=== PATIENT | male | born 1950 | race Hispanic/Latino ===

== ENCOUNTER → 2017-07-04 | Day surgery (SDC) | payer MEDICARE ==
[~2017-07-04] MED LIST: BACITRACIN 50,000 UNIT VIAL ONE; BUPIVACAINE HCL 0.5% 10ML MPF VIAL INJ ONE; FENTANYL CITRATE/PF 100MCG/2 ML INJ ONE; LIDOCAINE 2% /EPINEPHRINE 20 ML SDV INJ ONE; LIDOCAINE HCL 2% LOCAL INJ 5 ML SDV VIAL INJ ONE; PROPOFOL IV EMULSION 10 MG/ML 20 ML VIAL ONE
[2017-07-04 18:52] LABS: BASOPHILS % 0.5 % (0.0-1.0); EOSINOPHILS # (AUTO) 0.1 (0.0-0.4); EOSINOPHILS % 1.2 % (0.0-6.0); HEMATOCRIT 35.6 % (38.2-49.6); HEMOGLOBIN 11.5 g/dL (14.0-18.0); INR 1.5; LYMPHOCYTES # (AUTO) 1.1 (1.0-3.2); LYMPHOCYTES % 17.9 % (18.0-39.1); MEAN CORPUSCULAR HEMOGLOBIN 33.7 pg (28-32); MEAN CORPUSCULAR HGB CONC 32.3 g/dL (31-35); MEAN CORPUSCULAR VOLUME 104.4 fL (81-99); MONOCYTES # (AUTO) 0.3 (0.2-0.8); MONOCYTES % 4.2 % (4.4-11.3); NEUTROPHILS # (AUTO) 4.5 (2.1-6.9); NEUTROPHILS % 74.7 % (38.7-80.0); PLATELET COUNT 281 x10e3/uL (140-360); PROTHROMBIN TIME 18.9 seconds (11.9-14.5); RED BLOOD COUNT 3.41 x10e6/uL (4.3-5.7); RED CELL DISTRIBUTION WIDTH 12.4 % (11.7-14.4)
[2017-07-04 18:53] LABS: PARTIAL THROMBOPLASTIN TIME 41.1 seconds (23.8-35.5)
[2017-07-04 18:58] LABS: ALANINE AMINOTRANSFERASE 33 IU/L (0-55); ALBUMIN 2.3 g/dL (3.5-5.0); ALBUMIN/GLOBULIN RATIO 0.4 (0.8-2.0); ALKALINE PHOSPHATASE 206 IU/L (40-150); ANION GAP 12.3 mmol/L (8-16); BLOOD UREA NITROGEN 7 mg/dL (7-26); BUN/CREATININE RATIO 9 (6-25); CALCIUM 8.6 mg/dL (8.4-10.2); CARBON DIOXIDE 28 mmol/L (22-29); CHLORIDE 101 mmol/L (98-107); CREATININE, SERUM 0.77 mg/dL (0.72-1.25); EST GLOMERULAR FILTRATION RATE > 60 ML/MIN (60-); GLUCOSE 104 mg/dL (74-118); POTASSIUM 4.3 mmol/L (3.5-5.1); SODIUM 137 mmol/L (136-145)
--- NOTE | 2017-07-05 01:16 | Operative Report ---
DATE OF PROCEDURE: July 04, 2017 PREOPERATIVE DIAGNOSIS: Right lower extremity fasciitis. POSTOPERATIVE DIAGNOSIS: Right lower extremity fasciitis. OPERATIVE PROCEDURE: Incisional drainage of right lower extremity fasciitis. ANESTHESIA: Monitored sedation. INDICATIONS: The patient is a 67-year-old male with history of right lower extremity cellulitis, which progressed to fasciitis on CT scan. The patient consented for drainage of collection on the right anterior compartment of the lower extremity under monitored sedation with all attendant risks discussed. DESCRIPTION: The patient brought to the OR and given anesthesia in the supine position with IV conscious sedation. Local anesthesia of 0.5% lidocaine with epinephrine is injected at the projected site of incisions to supplement the monitored sedation. The leg has been prepped with Betadine and draped in sterile fashion. The area of fluctuance on the anterior aspect of the right lower extremity overlying the anterior compartment is incised approximately 2 to 3 cm in length in a transverse direction, deepening through the skin and subcutaneous tissue down to the fascia. The fascial plane is then developed above it in both directions up and down the leg until all the collected fluid is removed and specimen obtained for culture and sensitivity. Additional stab wound, 1 superior and 1 inferiorly is made in a similar fashion to open the entire anterior compartment on the plane above the fascia. The wound is then irrigated and a Maicol drain is placed from the top to the lowermost incisions to keep the wound open. We further packed the wound separately with iodoform gauze. With the entire fascial plane above the anterior compartment opened, we then wrapped the leg in gauze and Kerlix roll. He is then awakened from anesthesia and transported to recovery room. ESTIMATED BLOOD LOSS: 5 mL. Job#: [id number]
--- NOTE | 2017-07-05 01:23 | History and Physical ---
CHIEF COMPLAINT: Right leg infection. HISTORY OF PRESENT ILLNESS: This patient is a 67-year-old male known to me from prior hospitalizations at [facility] for right lower extremity cellulitis. Patient was placed on antibiotics and he was transferred to [facility] for further treatment. However, the right lower extremity became more swollen and tender with blister formations. CT scan showed evidence of fluid collection above the fascial plane in the right anterior compartment of the lower leg. Patient, therefore, consented for incisional and drainage and debridement under anesthesia. PAST MEDICAL HISTORY: Significant for diabetes, obesity, history of GI bleed, and alcoholism. SURGICAL HISTORY: Unremarkable. SOCIAL HABITS: Patient is a heavy alcohol user. He does not smoke. ALLERGIES: ALLERGIC TO NO DRUGS. REVIEW OF SYSTEMS: No chest pain shortness of breath or cough. EXAM VITAL SIGNS: Stable. He is afebrile. GENERAL: He is awake, alert, in moderate discomfort. HEENT: Sclerae nonicteric. NECK: Supple. LUNGS: Clear. HEART: Regular rhythm. No murmurs. ABDOMEN: Soft, nontender. EXTREMITIES: Revealed edematous and erythematous right lower extremity, below the knee to the ankle with blister formations on the lateral aspect of the lower leg with tenderness to palpation on the anterior compartment area of the leg. White cell count is 6, hemoglobin 11, creatinine is 0.7. CT scan as mentioned done at [facility] revealing fluid collection along the fascial plane on the anterior component of the right lower extremity. ASSESSMENT: Right lower extremity soft tissue infection with fasciitis. PLAN: Incision and drainage of the right lower extremity soft tissue infection under anesthesia. Attendant risks discussed with patient in detail. Job#: [id number] [place]
== END | disposition home or self-care (01) ==
LOC: OR 16:35
PROVIDERS: ATTEND Surgery
DX: M72.8 Other fibroblastic disorders (principal); I10 Essential (primary) hypertension; E11.65 Type 2 diabetes mellitus with hyperglycemia; K70.10 Alcoholic hepatitis without ascites; I48.2 Chronic atrial fibrillation; F10.20 Alcohol dependence, uncomplicated; E66.9 Obesity, unspecified; I48.92 Unspecified atrial flutter; Z79.01 Long term (current) use of anticoagulants
CPT/HCPCS: 27600; 36415; 80053; 82948; 85025; 85610; 85730; 87071; 87075; 87205; 93005; J2001 ×2

== ENCOUNTER 2021-03-26 07:45 | Observation (INO) | payer OTHER ==
[2021-03-22 09:04] LABS: BASOPHILS # (AUTO) 0.1 (0.0-0.1); BASOPHILS % 0.8 % (0.0-1.0); EOSINOPHILS # (AUTO) 0.3 (0.0-0.4); EOSINOPHILS % 3.3 % (0.0-6.0); HEMATOCRIT 46.8 % (38.2-49.6); HEMOGLOBIN 15.6 g/dL (14.0-18.0); LYMPHOCYTES # (AUTO) 1.7 (1.0-3.2); LYMPHOCYTES % 20.9 % (18.0-39.1); MEAN CORPUSCULAR HEMOGLOBIN 30.5 pg (28-32); MEAN CORPUSCULAR HGB CONC 33.3 g/dL (31-35); MEAN CORPUSCULAR VOLUME 91.4 fL (81-99); MONOCYTES # (AUTO) 0.6 (0.2-0.8); MONOCYTES % 6.9 % (4.4-11.3); NEUTROPHILS # (AUTO) 5.4 (2.1-6.9); NEUTROPHILS % 67.8 % (38.7-80.0); PLATELET COUNT 179 x10e3/uL (140-360); RED BLOOD COUNT 5.12 x10e6/uL (4.3-5.7); RED CELL DISTRIBUTION WIDTH 12.3 % (11.7-14.4)
[2021-03-22 09:19] LABS: CALCIUM 9.3 mg/dL (8.4-10.2); CREATININE, SERUM 1.26 mg/dL (0.72-1.25)
[~2021-03-26] VITALS: Ht 177.8 cm; Wt 121.6 kg
[~2021-03-26 07:45] MED LIST changes: +ADVIL200 MG PO; +ASPIRIN81 MG PO; -BACITRACIN 50,000 UNIT VIAL ONE; -BUPIVACAINE HCL 0.5% 10ML MPF VIAL INJ ONE; -FENTANYL CITRATE/PF 100MCG/2 ML INJ ONE; +HYDROCHLOROTHIA25 MG PO; -LIDOCAINE 2% /EPINEPHRINE 20 ML SDV INJ ONE; -LIDOCAINE HCL 2% LOCAL INJ 5 ML SDV VIAL INJ ONE; -PROPOFOL IV EMULSION 10 MG/ML 20 ML VIAL ONE
[2021-03-26] MEDS ORDERED: ROPIVACAINE 246.25 MG, EPINEPHRINE HCL 1:1000 1ML 0.5 MG, CLONIDINE HCL 0.08 MG, KETORO... INJ ONE ×5 (08:00)
[2021-03-26] MEDS ORDERED: DEXAMETHASONE SOD PHOS 10 MG/1 ML VIAL ONE (08:40)
[2021-03-26] MEDS ORDERED: CELECOXIB 200 MG CAP ONE ×2 (08:40→17:46)
[2021-03-26] MEDS ORDERED: SODIUM CHLORIDE 0.9% 50ML 100 ML ONE (08:41)
[2021-03-26] MEDS ORDERED: GABAPENTIN 300 MG CAP ONE (08:41)
[2021-03-26] MEDS ORDERED: SODIUM CHLORIDE 0.9% 500ML 500 ML ONE (09:45)
[2021-03-26] MEDS ORDERED: Vancomycin IV 1,000 MG ONE (09:45)
[2021-03-26] MEDS ORDERED: TRANEXAMIC ACID 1,000 MG/10 ML ML ONE (09:46)
[2021-03-26] MEDS ORDERED: HYDROCODONE/APAP 5MG-325MG TAB PO PRN (11:45)
[2021-03-26] MEDS ORDERED: DIPHENHYDRAMINE HCL INJ 50 MG/ML VIAL IV PRN (11:45)
[2021-03-26] MEDS ORDERED: HYDROCODONE/APAP 7.5MG-325MG 1 EA TAB PO PRN (11:45)
[2021-03-26] MEDS ORDERED: KETOROLAC TROMETHAMINE 30 MG/ML VIAL IV PRN (11:45)
[2021-03-26] MEDS ORDERED: SODIUM CHLORIDE 0.9% 1000ML 1,000 ML IV SCH (11:45)
[2021-03-26] MEDS ORDERED: ACETAMINOPHEN 650 MG SUPP PR PRN (11:45)
[2021-03-26] MEDS ORDERED: ZOLPIDEM TARTRATE 5 MG TAB PO PRN (11:45)
[2021-03-26] MEDS ORDERED: ONDANSETRON HCL INJ 2MG/ML 2ML 2 MG/ML VIAL IV PRN (11:45)
[2021-03-26] MEDS ORDERED: DOCUSATE SODIUM 100 MG CAP PO PRN (11:45)
[2021-03-26] MEDS ORDERED: ROPIVACAINE 0.5% 5 MG/ML 30 ML SDV ONE (12:56)
[2021-03-26] MEDS ORDERED: FENTANYL CITRATE/PF 100MCG/2 ML INJ ONE (13:20)
[2021-03-26] MEDS ORDERED: MIDAZOLAM HCL 2 MG/2 ML VIAL ONE (13:20)
[2021-03-26] MEDS: CELECOXIB 200 MG CAP PO SCH (17:40)
[2021-03-26] MEDS: ASPIRIN 325 MG TAB PO SCH (17:40)
[2021-03-26] MEDS: Cefazolin 1 GM in SODIUM CHLORIDE 0.9% 50ML 50 ML IV SCH (18:04)
[2021-03-26] MEDS ORDERED: HYDROCODONE/APAP 5MG-325MG TAB ONE (21:29)
[2021-03-26 22:00] VITALS: BP 124/69
[2021-03-26 22:05] VITALS: BP 124/69
[2021-03-27 00:01] VITALS: BP 130/70
[2021-03-27] MEDS: Cefazolin 1 GM in SODIUM CHLORIDE 0.9% 50ML 50 ML IV SCH ×2 (02:48→09:31)
[2021-03-27 04:00] VITALS: BP 125/70
[2021-03-27 05:18] LABS: HEMATOCRIT 40.6 % (38.2-49.6); HEMOGLOBIN 13.3 g/dL (14.0-18.0)
[2021-03-27 08:00] VITALS: BP 129/79
[2021-03-27 08:15] VITALS: BP 129/79
[2021-03-27] MEDS ORDERED: ONDANSETRON HCL 4 MG ORAL DISINTEGRATING TAB PO PRN (08:45)
[2021-03-27] MEDS: ASPIRIN 325 MG TAB PO SCH (09:00)
[2021-03-27] MEDS: CELECOXIB 200 MG CAP PO SCH (09:01)
[2021-03-27] MEDS ORDERED: ACETAMINOPHEN 1000 MG/100 ML IV PRN (11:45)
[2021-03-27 12:12] VITALS: BP 126/79
[2021-03-27] MEDS ORDERED: ONDANSETRON HCL INJ 2MG/ML 2ML 2 MG/ML VIAL ONE (17:52)
[2021-03-27] MEDS ORDERED: DEXAMETHASONE SOD PHOS INJ 4 MG/ML VIAL ONE (17:52)
[2021-03-27] MEDS ORDERED: SEVOFLURANE INHAL SOLN 250 ML PEN BTL ONE (17:52)
[2021-03-27] MEDS ORDERED: PROPOFOL IV EMULSION 10 MG/ML 20 ML VIAL ONE (17:52)
[2021-03-27] MEDS ORDERED: LIDOCAINE HCL 2% LOCAL INJ 5 ML SDV VIAL INJ ONE (17:52)
== END 2021-03-27 12:35 | disposition home or self-care (01) ==
LOC: OR 07:45 → PACU V 11:47 → MED/SURG 21:57
PROVIDERS: ADMIT Specialist; ATTEND Specialist
DX: M17.11 Unilateral primary osteoarthritis, right knee (principal); I10 Essential (primary) hypertension
CPT/HCPCS: 36415; 71046; 80048; 85014; 85018; 85025; 86850; 86900; 86920; C1713; C1776; G0378; J0171; J0690; J1100; J1885; J2001; J2250; J2405; J2795; J3010; J3370; J7030; J7040

== ENCOUNTER 2022-04-19 22:15 | Emergency (ER) | payer OTHER ==
[~2022-04-19] VITALS: Ht 177.8 cm; Wt 121.6 kg
[2022-04-19] MEDS ORDERED: MECLIZINE HCL 12.5 MG TAB PO ONE (22:30)
[2022-04-19 22:44] LABS: CLARITY,URINE CLEAR (CLEAR); COLOR,URINE YELLOW (YELLOW); LEUKOCYTE ESTERASE ,URINE NEGATIVE (NEGATIVE); NITRITE,URINE NEGATIVE (NEGATIVE); PROTEIN,URINE DIPSTICK TRACE (NEGATIVE)
[2022-04-19 22:45] LABS: KETONES,URINE 1+ (NEGATIVE); URINE UROBILINOGEN 1 mg/dL (0.2 - 1)
[2022-04-19 22:46] LABS: BASOPHILS % 0.5 % (0.0-1.0); EOSINOPHILS # (AUTO) 0.3 (0.0-0.4); EOSINOPHILS % 3.6 % (0.0-6.0); HEMATOCRIT 47.6 % (38.2-49.6); LYMPHOCYTES # (AUTO) 2.1 (1.0-3.2); LYMPHOCYTES % 26.4 % (18.0-39.1); MEAN CORPUSCULAR HEMOGLOBIN 31.2 pg (28-32); MEAN CORPUSCULAR HGB CONC 33.6 g/dL (31-35); MEAN CORPUSCULAR VOLUME 92.8 fL (81-99); MONOCYTES # (AUTO) 0.7 (0.2-0.8); MONOCYTES % 8.3 % (4.4-11.3); NEUTROPHILS # (AUTO) 4.7 (2.1-6.9); NEUTROPHILS % 60.9 % (38.7-80.0); PLATELET COUNT 147 x10e3/uL (140-360); RED BLOOD COUNT 5.13 x10e6/uL (4.3-5.7); RED CELL DISTRIBUTION WIDTH 12.8 % (11.7-14.4)
[2022-04-19 22:52] LABS: BACTERIA,URINE FEW /HPF; EPITHELIAL CELLS,URINE RARE /LPF; MUCUS,URINE MANY (RARE); RBC,URINE 0-5 /HPF (0-5); WBC,URINE (MAN) 0-5 /HPF (0-5)
[2022-04-19 23:03] LABS: ALBUMIN 3.8 g/dL (3.5-5.0); ANION GAP 15.5 mmol/L (8-16); CALCIUM 9.1 mg/dL (8.4-10.2); CREATININE, SERUM 1.21 mg/dL (0.72-1.25); POTASSIUM 3.5 mmol/L (3.5-5.1)
[2022-04-19 23:10] LABS: CREATINE KINASE MB 0.9 ng/mL (0-5.0)
[2022-04-20] MEDS ORDERED: ONDANSETRON HCL INJ 2MG/ML 2ML 2 MG/ML VIAL IV PRN
[2022-04-20] MEDS ORDERED: ASPIRIN 81 MG CHEW TAB PO ONE
[2022-04-20] MEDS ORDERED: ASPIRIN 81 MG CHEW TAB PO SCH
[2022-04-20] MEDS ORDERED: ASPIRIN 81 MG CHEW TAB ONE ×2 (00:08→00:11)
== END 2022-04-20 03:16 | disposition other institution (70) ==
LOC: ER 22:25 → UNDOADMOB 23:55 → ERHOLD 23:55 → ER 04-20 03:16
DX: R42 Dizziness and giddiness (principal); I48.20 Chronic atrial fibrillation, unspecified; I10 Essential (primary) hypertension; R94.31 Abnormal electrocardiogram [ECG] [EKG]
CPT/HCPCS: 0223U; 36415; 70450; 71045; 80053; 81001; 82550; 82553; 84484; 85025; 93005; 99284